=== PATIENT | female | born 1930 | race Caucasian/White ===

== ENCOUNTER → 2016-08-19 | Outpatient (CLI) | payer MEDICARE, OTHER ==
[~2016-08-19] MED LIST: HYDROCODON-ACE1 EAC4 PO; HYZAAR 50-12.51 TAB PO; LASIX20 M1 PO; SENOKOT PO
== END | disposition home or self-care (01) ==
LOC: RAD.S 10:17
DX: R41.3 Other amnesia (principal); R41.81 Age-related cognitive decline

== ENCOUNTER 2016-09-08 21:29 | Emergency (ER) | payer MEDICARE, OTHER ==
--- NOTE | 2016-09-12 09:03 | ER ---
ADMIT: 09/08/2016 RM/LOC: ER [facility] MR#: [id number] [id number] [place], [place] [id number] ABIMAEL MILLS [address] [place] [address] Emergency Room Report SEX: F AGE: 85 : 1930 DATE: 09/08/2016 BRIEF ADDENDUM: Please see my T-sheet for complete review of systems, past medical history, and physical exam. CHIEF COMPLAINT: Lower leg skin rash. HISTORY OF PRESENT ILLNESS: A pleasant 85-year-old female, who presents with her daughter for 3-days' duration of worsening rash on her lower legs. States over the past week, she has had increasing lower leg edema. Tonight, daughter noticed increased weeping and a gush of fluid from the back of her left leg. States over the past 3 days, she noticed increased redness. She has had shortness of breath over short distances of 20 to 25 feet with ambulation. She has a history of atrial fibrillation, on Coumadin as well as congestive heart failure. History of hypertension, most recently had a CVA about 2 weeks ago. 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 Denies any fever, chills, chest pain, cough, abdominal pain, nausea, or vomiting. COURSE IN THE ER: GENERAL: The patient is seen and examined. She is afebrile and nontoxic. She is in no acute distress. VITAL SIGNS: Blood pressure 122/60, heart rate 66, respirations 16, temperature 99, and 98% on room air. She is alert. SKIN: She does have bilateral lower leg pitting edema up to the tibial plateau with some erythema just proximal to the medial malleolus extending circumferentially around each lower leg. She does have some tenderness associated with this. However, no real warmth is appreciated on exam. There is some leakage of clear fluid from both lower legs. RESPIRATORY: In no respiratory distress. She has some faint rhonchi in the bases. HEART: Regular rate, it is irregular secondary to atrial fibrillation. ABDOMEN: Soft and nontender. NEURO: She is alert and oriented. Motor and sensation are equal in both lower extremities compared bilaterally. LABORATORY DATA: Given her clinical history as well as presenting symptoms, we did get laboratory studies on her. White count 5.9, hemoglobin 11.3, hematocrit 35.1, platelets 104. Sodium 138, potassium 3.8, BUN 20, glucose 119, creatinine 1.3. AST 30, ALT 56. Troponin 0.041. BNP 7907. Lactic acid 0.8. EKG shows atrial fib with a rate of 93. I did call Dr. Arredondo, made her aware of the patient. She agreed with my plan to start Lasix and Keflex for cellulitis. Follow up sometime later this week or early next week. She was given her first dose of Keflex in the department prior to discharge tonight. IMPRESSION: 1. Lower leg edema. ADMIT: 09/08/2016 RM/LOC: [facility] MR#: [id number] [address] [place] [id number] ABIMAEL MILLS [facility] [place] [address] Emergency Room Report SEX: F AGE: 85 : 1930 2. Cellulitis bilateral lower legs. 3. Atrial fibrillation on chronic anticoagulation. DISPOSITION: The patient will be started on Keflex 500 mg p.o. b.i.d. for 7 days. She will also be started on Lasix 20 mg p.o. daily. Discharge tomorrow morning. I did caution her to watch her salt intake and fluid intake carefully as she is carrying significant amount of fluid with her. However, she should monitor for any signs of dehydration or other concerns. Call Dr. Arredondo's office as needed. Activity as tolerated and told her to elevate her legs when not up and active compression stockings. Follow up with Dr. Arredondo next week. Questions sought and answered to the best of my ability and to the patient's satisfaction. Discharged in stable condition. SUELLEN Botello / Miguel Mcbride MD / duglasl JOB #: [id number] CC: Miguel Mcbride MD, Attending Physician Nisha Arredondo MD, Family Physician
== END 2016-09-08 22:55 | disposition home or self-care (01) ==
LOC: ER 21:29
DX: L03.116 Cellulitis of left lower limb (principal); L03.115 Cellulitis of right lower limb; R60.0 Localized edema; I48.91 Unspecified atrial fibrillation; I11.0 Hypertensive heart disease with heart failure; I50.9 Heart failure, unspecified; Z86.73 Personal history of transient ischemic attack (TIA), and cerebral infarction without residual deficits; Z90.710 Acquired absence of both cervix and uterus